=== PATIENT | male | born 1990 | race Caucasian/White ===

== ENCOUNTER 2020-02-04 03:21 | Emergency (ER) | payer SELFPAY ==
[~2020-02-04] VITALS: Ht 170.2 cm; Wt 65.8 kg
--- NOTE | 2020-02-04 03:25 | NUR ---
Patient to ER bed 5 to gown for evaluation. Side rails up. Report given Adriel
[2020-02-04 03:27] VITALS: BP_SYST 124
--- NOTE | 2020-02-04 03:27 | NUR ---
Dr. Ko bedside for pt eval
--- NOTE | 2020-02-04 03:32 | NUR ---
Pt AIDEN from inside car parked outside friend's house C/O not being able to get inside house to get " Heart Meds ?" he called emergency response, so he can be let inside the house. However, they brought him to the ER instead. No other complaints noted. VSS no s/s of acute distress. Resting on [employer] rails up
--- NOTE | 2020-02-04 03:35 | NUR ---
PT AWAKE, ALERT. GRIMACING, LAYING ON HIS SIDE. CURSING. RESISTIVE TO TREATMENTS OFFERRED. REFUSED EKG. ANGRY AT THE POLICE. PUNCHING GURNEY.
--- NOTE | 2020-02-04 04:00 | NUR ---
TEARFUL AT TIMES. RANTING. NON-COMPLIANT.
--- NOTE | 2020-02-04 05:50 | NUR ---
ASLEEP. TURNS SELF WELL.
--- NOTE | 2020-02-04 09:00 | NUR ---
Miguel cox in [facility] - 02/04/20 at 0932 by [email or web address] pt refused to have VS taken
--- NOTE | 2020-02-04 09:20 | NUR ---
pt refused VS
[2020-02-04 09:30] VITALS: BP_SYST 124
--- NOTE | 2020-02-04 09:30 | NUR ---
Patient given written and verbal discharge instructions and verbalizes understanding. ER MD discussed with patient the results and treatment provided. Patient in stable condition. ID arm band removed. IV catheter removed intact and dressing applied, no active bleeding. Rx of given. Pain Scale 0/10. Opportunity for questions provided and answered. Medication side effect fact sheet provided.
== END 2020-02-04 09:30 | disposition home or self-care (01) ==
LOC: SED 03:21
DX: F10.129 Alcohol abuse with intoxication, unspecified (principal)
CPT/HCPCS: 99283

== ENCOUNTER 2023-10-30 13:49 | Emergency (ER) | payer MEDICAID ==
[~2023-10-30] VITALS: Ht 170.2 cm; Wt 65.8 kg
[2023-10-30 13:50] VITALS: BP_SYST 114; PULSE 78; RESP 18; TEMP 97.2; O2SAT 97
[2023-10-30] MEDS ORDERED: IBUP800T54 PO (14:04)
[2023-10-30] MEDS ORDERED: NEOM10SO7 LEFT EAR (14:04)
[2023-10-30] MEDS ORDERED: CEPH250C PO (14:05)
[2023-10-30 14:06] VITALS: BP_SYST 114; PULSE 78; RESP 18; TEMP 97.2; O2SAT 97
[2023-10-30] MEDS: BACITRACIN 1 GM OINT TP ONE (14:16)
== END 2023-10-30 14:12 | disposition home or self-care (01) ==
LOC: SED 13:49
DX: S61.211A Laceration without foreign body of left index finger without damage to nail, initial encounter (principal); H60.92 Unspecified otitis externa, left ear; W27.8XXA Contact with other nonpowered hand tool, initial encounter; Y93.89 Activity, other specified; Y92.89 Other specified places as the place of occurrence of the external cause; Y99.8 Other external cause status
CPT/HCPCS: 99283